=== PATIENT | male | born 1990 | race Caucasian/White ===

== ENCOUNTER 2018-07-11 02:42 | Emergency (ER) | payer SELFPAY ==
[~2018-07-11] VITALS: Ht 180.3 cm; Wt 160.0 kg
[2018-07-11 04:35] VITALS: BP 144/95
== END 2018-07-11 04:59 | disposition home or self-care (01) ==
LOC: ER 02:42
DX: H60.91 Unspecified otitis externa, right ear (principal)
CPT/HCPCS: 82962; 99283

== ENCOUNTER 2019-01-15 09:04 | Emergency (ER) | payer SELFPAY ==
[~2019-01-15] VITALS: Ht 162.6 cm; Wt 154.0 kg
[2019-01-15 10:05] VITALS: BP 151/70
== END 2019-01-15 10:15 | disposition home or self-care (01) ==
LOC: ER 09:04
DX: R20.8 Other disturbances of skin sensation (principal); K13.79 Other lesions of oral mucosa; F12.10 Cannabis abuse, uncomplicated
CPT/HCPCS: 99282

== ENCOUNTER 2022-05-10 10:37 | Emergency (ER) | payer MEDICAID ==
[~2022-05-10] VITALS: Ht 182.9 cm; Wt 169.0 kg
[2022-05-10 11:21] VITALS: BP 150/90
[2022-05-10] MEDS ORDERED: ONDANSETRON 4MG ODT PO ONE (11:30)
[2022-05-10] MEDS ORDERED: MAGNESIUM/ALUMINUM HYDROXIDE/SIMETHICONE 30ML UDC PO ONE (11:30)
[2022-05-10] MEDS ORDERED: ACETAMINOPHEN 325MG TABLET PO ONE (11:30)
[2022-05-10 11:59] LABS: BASOPHILS % 0.3 % (0.0-2.0); EOSINOPHILS % 1.1 % (0.0-5.0); HEMATOCRIT. 43.1 % (42.0-52.0); HEMOGLOBIN. 14.6 g/dL (14.0-18.0); LYMPHOCYTES % 30.8 % (20.0-50.0); MEAN CORPUSCULAR HEMOGLOBIN 31.5 pg (28.0-32.0); MEAN CORPUSCULAR VOLUME 92.8 fL (80.0-94.0); MEAN PLATELET VOLUME 8.8 fl (7.4-10.4); NEUTROPHILS % 60.8 % (40.0-76.0); PLATELET 282 x1000/uL (130-400); RED BLOOD CELL COUNT 4.65 mill/uL (4.7-6.1); RED CELL DISTRIBUTION WIDTH 12.6 % (11.6-14.6)
[2022-05-10] MEDS ORDERED: MAGNESIUM/ALUMINUM HYDROXIDE/SIMETHICONE 30ML UDC PO NR (12:00)
[2022-05-10 12:09] LABS: CHLORIDE 102 mEq/L (98-107)
[2022-05-10 13:12] LABS: BG BASE EXCESS -2.1 mmol/L (-2.0-2.0); BG CARBOXYHEMOGLOBIN 1.4 % (0.5-1.5); BG DEOXYHEMOGLOBIN 4.4 % (0.0-5.0); BG FRACTION INSPIRED OXYGEN 21; BG HCO3 ACT 22.6 mmol/L (22.0-26.0); BG METHEMOGLOBIN 0.3 % (0.0-1.5); BG OXYGEN SATURATION 95.5 % (92.0-98.5); BG OXYHEMOGLOBIN 93.9 % (94.0-97.0); BG PCO2 38.5 mmHg (35.0-45.0); BG PH 7.386 (7.350-7.450); BG PO2 73.1 mmHg (75.0-100.0); BG SAMPLE SITE LEFT BRACHIAL; BG VENT MODE ROOM AIR
[2022-05-10] MEDS ORDERED: METF-873 MT (14:04)
[2022-05-10] MEDS ORDERED: FAMOTIDINE 20MG TABLET PO SCH (21:00)
== END 2022-05-10 11:51 | disposition home or self-care (01) ==
LOC: ER 10:37
DX: R07.89 Other chest pain (principal); F12.10 Cannabis abuse, uncomplicated
CPT/HCPCS: 36415; 36600; 71045; 80053; 82375; 82805; 82962; 83690; 84484; 85025; 93005; 99285; Q0162

== ENCOUNTER 2022-09-12 20:38 | Emergency (ER) | payer MEDICAID ==
[~2022-09-12] VITALS: Ht 185.4 cm; Wt 143.9 kg
[~2022-09-12 20:38] MED LIST: METF-873 MT
[2022-09-12 20:53] VITALS: BP 149/86
== END 2022-09-12 23:21 | disposition left against medical advice (07) ==
LOC: ER 20:38
DX: Z53.21 Procedure and treatment not carried out due to patient leaving prior to being seen by health care provider (principal)
CPT/HCPCS: 93005

== ENCOUNTER 2022-10-09 17:39 | Emergency (ER) | payer MEDICAID ==
[~2022-10-09] VITALS: Ht 182.9 cm; Wt 153.0 kg
[2022-10-09 18:04] VITALS: BP 143/85
== END 2022-10-09 21:03 | disposition left against medical advice (07) ==
LOC: ER 18:14
DX: Z53.21 Procedure and treatment not carried out due to patient leaving prior to being seen by health care provider (principal); E11.9 Type 2 diabetes mellitus without complications

== ENCOUNTER 2024-04-22 14:45 | Emergency (ER) | payer SELFPAY ==
[~2024-04-22] VITALS: Ht 182.9 cm; Wt 170.0 kg
[2024-04-22 15:03] VITALS: BP 146/92; PULSE 97; RESP 16; TEMP 98; O2SAT 100; O2SAT 97
[2024-04-22] MEDS ORDERED: IBUP-2030 MT (15:42)
[2024-04-22 16:44] LABS: CHLORIDE 107 mEq/L (98-107); POTASSIUM 3.8 mEq/L (3.5-5.1); SODIUM 137 mEq/L (136-145)
[2024-04-22 16:45] LABS: CARBON DIOXIDE 24 mEq/L (21-32)
[2024-04-22 16:47] LABS: CALCIUM 9.5 mg/dL (8.7-10.4)
[2024-04-22 16:48] LABS: BASOPHILS % 0.5 % (0.0-2.0); EOSINOPHILS % 0.4 % (0.0-5.0); HEMATOCRIT. 42.7 % (42.0-52.0); HEMOGLOBIN. 14.6 g/dL (14.0-18.0); LYMPHOCYTES % 22.2 % (20.0-50.0); MEAN CORPUSCULAR HGB CONC 34.3 g/dL (31.0-37.0); MEAN CORPUSCULAR VOLUME 93.2 fL (80.0-94.0); MEAN PLATELET VOLUME 8.7 fl (7.4-10.4); MONOCYTES % 8.6 % (2.0-8.0); NEUTROPHILS % 68.3 % (40.0-76.0); PLATELET 309 x1000/uL (130-400); RED BLOOD CELL COUNT 4.58 mill/uL (4.7-6.1); RED CELL DISTRIBUTION WIDTH 12.8 % (11.6-14.6)
[2024-04-22 16:50] LABS: CREATININE 0.9 mg/dL (0.6-1.3); UREA NITROGEN BLOOD 9 mg/dL (9-23)
[2024-04-22 17:12] LABS: GLUCOSE 106 mg/dL (70-105)
== END 2024-04-22 17:31 | disposition home or self-care (01) ==
LOC: ER 14:45
DX: M79.671 Pain in right foot (principal); M79.642 Pain in left hand; F12.10 Cannabis abuse, uncomplicated; E11.9 Type 2 diabetes mellitus without complications
CPT/HCPCS: 36415; 73130; 73630; 80048; 85025; 99284

== ENCOUNTER 2025-07-09 15:54 | Emergency (ER) | payer SELFPAY ==
[~2025-07-09] VITALS: Ht 180.3 cm; Wt 150.0 kg
[~2025-07-09 15:54] MED LIST changes: +IBUP-2030 MT; +METF-1149 MT; -METF-873 MT
[2025-07-09 15:58] VITALS: BP 147/91; PULSE 116; RESP 22; TEMP 36.8; O2SAT 100
[2025-07-09 16:47] LABS: BASOPHILS % 0.4 % (0.0-2.0); EOSINOPHILS % 1.2 % (0.0-5.0); HEMATOCRIT. 41.8 % (42.0-52.0); HEMOGLOBIN. 14.3 g/dL (14.0-18.0); LYMPHOCYTES % 33.7 % (20.0-50.0); MEAN PLATELET VOLUME 8.8 fl (7.4-10.4); MONOCYTES % 6.6 % (2.0-8.0); NEUTROPHILS % 58.1 % (40.0-76.0); PLATELET 270 x1000/uL (130-400); RED BLOOD CELL COUNT 4.50 mill/uL (4.7-6.1); RED CELL DISTRIBUTION WIDTH 12.4 % (11.6-14.6)
[2025-07-09 17:01] LABS: CREATININE 1.1 mg/dL (0.6-1.3); UREA NITROGEN BLOOD 8 mg/dL (9-23)
[2025-07-09 17:03] LABS: TROPONIN I HIGH SENSITIVITY < 4 ng/L (3.0-53)
== END 2025-07-09 19:13 | disposition left against medical advice (07) ==
LOC: ER 15:54
DX: R00.0 Tachycardia, unspecified (principal); E11.9 Type 2 diabetes mellitus without complications
CPT/HCPCS: 36415; 71045; 80048; 84484; 85025; 93005; 99281